=== PATIENT | female | born 1965 | race Asian ===

== ENCOUNTER 2019-06-27 16:24 | Emergency (ER) | payer OTHER ==
[~2019-06-27] VITALS: Ht 170.2 cm; Wt 63.9 kg
--- NOTE | 2019-06-27 19:10 | NUR ---
PT TO ROOM FROM LOBBY
--- NOTE | 2019-06-27 19:38 | NUR ---
FARA HERMAN FOR EXAM. PT C/O COUGH X 8 DAYS, CURRENTLY TAKING ANTIBIOTICS (STARTED THURSDAY). DRY CONGESTED COUGH NOTED. INTERMITTENT FEVER - NO ANTIPYRETIC TAKEN TODAY. SPOUSE IN ROOM Addendum: 06/27/19 at 2030 by MEMO CORRECTION: FARA PEACE. NOT BATSHEVA
[2019-06-27] MEDS ORDERED: SULF500T36 PO (19:45)
[2019-06-27] MEDS ORDERED: IBUP-1222 PO (19:45)
[2019-06-27] MEDS ORDERED: HYDR200T72 PO (19:45)
[2019-06-27] MEDS ORDERED: AMOX-291 PO (19:45)
[2019-06-27] MEDS ORDERED: AZIT250T PO (19:45)
[2019-06-27] MEDS ORDERED: SODIUM CHLORIDE FLUSH 10ML SYR IVF ONE (20:00)
--- NOTE | 2019-06-27 20:15 | NUR ---
PIV INITIATED: 20G RAC, BLOOD CX SET DRAWN FROM SITE. BLD CX BAND PLACED PER OCCUPATIONAL HEALTH MANAGER.
[2019-06-27 20:23] LABS: BASOPHILS # (AUTO) 0.03 x10^3/uL (0-0.1); BASOPHILS % (AUTO) 1 % (0-1); EOSINOPHILS # (AUTO) 0.06 x10^3/uL (0-0.4); EOSINOPHILS % (AUTO) 1 % (1-7); LYMPHOCYTES # (AUTO) 2.01 x10^3/uL (1-3.4); LYMPHOCYTES % (AUTO) 39 % (22-44); MD NO; MEAN CORPUSCULAR HEMOGLOBIN 30.1 pg (27.0-34.8); MEAN CORPUSCULAR HGB CONC 32.6 g/dL (32.4-35.8); MEAN CORPUSCULAR VOLUME 92.3 fL (80-100); MONOCYTES # (AUTO) 0.39 x10^3/uL (0.2-0.8); MONOCYTES % (AUTO) 7 % (2-9); NEUTROPHILS # (AUTO) 2.71 x10^3/uL (1.8-6.8); NEUTROPHILS % (AUTO) 52 % (42-75); PLATELET COUNT 192 x10^3/uL (130-400); RED BLOOD COUNT 4.06 x10^6/uL (3.82-5.3); RED CELL DISTRIBUTION WIDTH 12.4 % (9.6-15.2)
[2019-06-27 20:35] LABS: ALANINE AMINOTRANSFERASE 51 U/L (12-78); ALBUMIN 3.7 g/dL (3.4-5.0); ANION GAP 5 mmol/L (5-15); CALCIUM 9.3 mg/dL (8.5-10.1); CHLORIDE 111 mmol/L (98-107); CREATININE 0.52 mg/dL (0.55-1.02)
[2019-06-27 20:37] LABS: ALKALINE PHOSPHATASE 102 U/L (45-117); BILIRUBIN,TOTAL 0.4 mg/dL (0.2-1.0); TOTAL PROTEIN 7.5 g/dL (6.4-8.2)
[2019-06-27 21:27] VITALS: BP 122/75
[2019-06-27] MEDS ORDERED: DOXYCYCLINE 100MG TABLET ONE (21:44)
--- NOTE | 2019-06-27 21:47 | NUR ---
DOXYCYCLINE GIVEN PER EMAR
[2019-06-27] MEDS ORDERED: DOXYCYCLINE 100MG TABLET PO ONE (22:00)
== END 2019-06-27 23:16 ==
LOC: ED 21:55
DX: J15.9 Unspecified bacterial pneumonia (principal); M79.10 Myalgia, unspecified site
CPT/HCPCS: 36415; 71046; 80053; 83605; 84145; 85025; 87040; 93005; 99284

== ENCOUNTER 2019-07-06 13:43 | Inpatient (IN) | payer OTHER ==
[~2019-07-06] VITALS: Ht 170.2 cm; Wt 67.5 kg
[~2019-07-06 13:43] MED LIST: AMOX-291 PO; AZIT250T PO; HYDR200T72 PO; IBUP-1222 PO; SULF500T36 PO
--- NOTE | 2019-07-06 14:32 | NUR ---
PT HAS BEEN GETTING TREATED FOR PNEUMONIA FOR THE PAST MONTH. SHE FIRST WENT TO THE HOSPITAL IN [place] ON [place]. CAME BACK TO [place] ON THE AND CAME TO [facility] FOR FURTHER TREATMENT. WAS GIVEN ABX AND TREATED FOR PNEUMONIA. SAYS SHE ISNT GETTING BETTER. PT ACCOMPANIED BY . WARM BLANKET PROVIDED.
[2019-07-06] MEDS ORDERED: BENZ-17 PO (14:36)
[2019-07-06] MEDS ORDERED: DOXY100C2 PO (14:36)
[2019-07-06] MEDS: SODIUM CHLORIDE 0.9% 1,000 ML IV ONE ×2 (14:37→14:55)
[2019-07-06] MEDS ORDERED: SODIUM CHLORIDE FLUSH 10ML SYR IVF ONE (15:00)
[2019-07-06] MEDS ORDERED: SODIUM CHLORIDE 0.9% 1,000ML IVBOLUS ONE (15:00)
[2019-07-06 15:07] LABS: BASOPHILS % (AUTO) 0 % (0-1); EOSINOPHILS # (AUTO) 0.02 x10^3/uL (0-0.4); EOSINOPHILS % (AUTO) 1 % (1-7); LYMPHOCYTES # (AUTO) 0.24 x10^3/uL (1-3.4); LYMPHOCYTES % (AUTO) 7 % (22-44); MD NO; MEAN CORPUSCULAR HGB CONC 33.7 g/dL (32.4-35.8); MEAN CORPUSCULAR VOLUME 91.9 fL (80-100); MONOCYTES # (AUTO) 0.18 x10^3/uL (0.2-0.8); MONOCYTES % (AUTO) 5 % (2-9); NEUTROPHILS # (AUTO) 3.24 x10^3/uL (1.8-6.8); NEUTROPHILS % (AUTO) 88 % (42-75); PLATELET COUNT 113 x10^3/uL (130-400); RED BLOOD COUNT 4.08 x10^6/uL (3.82-5.3); RED CELL DISTRIBUTION WIDTH 12.2 % (9.6-15.2)
[2019-07-06 15:16] LABS: ALANINE AMINOTRANSFERASE 46 U/L (12-78); ALBUMIN 3.9 g/dL (3.4-5.0); ANION GAP 6 mmol/L (5-15); CALCIUM 9.1 mg/dL (8.5-10.1); CHLORIDE 104 mmol/L (98-107); CREATININE 0.73 mg/dL (0.55-1.02)
[2019-07-06 15:20] LABS: ALKALINE PHOSPHATASE 101 U/L (45-117); BILIRUBIN,TOTAL 0.4 mg/dL (0.2-1.0); TOTAL PROTEIN 7.8 g/dL (6.4-8.2); TROPONIN I < 0.015 ng/mL (0.000-0.045)
[2019-07-06 15:30] LABS: D-DIMER 1.17 ug/mlFEU (0.00-0.52); INTERNATIONAL NORMALIZED RATIO 0.95 (0.93-1.1); PROTHROMBIN TIME 10.1 Seconds (9.6-11.5)
--- NOTE | 2019-07-06 15:36 | NUR ---
PT AMBULATED TO BATHROOM
--- NOTE | 2019-07-06 16:01 | NUR ---
WET WASH CLOTH GIVEN TO PT
[2019-07-06 16:36] LABS: MICROSCOPIC NOT IND
[2019-07-06 16:44] LABS: CULTURE INDICATED? NO
[2019-07-06] MEDS ORDERED: OMNIPAQUE 350 MG/ML, 100ML BOTTLE ONE (16:52)
--- NOTE | 2019-07-06 17:03 | NUR ---
PT AMBULATED TO BATHROOM.
--- NOTE | 2019-07-06 17:26 | NUR ---
PT RESTING IN HOSPITAL BED. NO NEEDS AT THIS TIME
--- NOTE | 2019-07-06 17:51 | NUR ---
PT AMBULATED TO BATHROOM
[2019-07-06] MEDS ORDERED: APAP/CODEINE 300/30MG TABLET ONE (18:14)
--- NOTE | 2019-07-06 18:16 | NUR ---
TASK RN: US AT BEDSIDE WITH ASSESSMENT NOTED TO BE COUGHIN INCESSANTLY (DRY/UNPRODUCTIVE COUGH-ER PROVIDER MADE AWARE TO ORDER APAP WITH CODEINE
[2019-07-06] MEDS ORDERED: APAP/CODEINE 24/2.4MG/ML ELIXIR PO ONE (18:30)
[2019-07-06] MEDS ORDERED: APAP/CODEINE 300/30MG TABLET PO ONE (18:30)
--- NOTE | 2019-07-06 19:20 | NUR ---
PT RESTING IN HOSPITAL BED. AWAITING ROOM FOR ADM. NO NEEDS AT THIS TIME
--- NOTE | 2019-07-06 19:43 | NUR ---
SPOKE WITH DR WATKINS ABOUT PT. HE SAID "WE ARE GOING TO ADMIT HER"
--- NOTE | 2019-07-06 20:14 | NUR ---
ALESHA MARQUEZ IS BEDSIDE
[2019-07-06] MEDS ORDERED: CEFTRIAXONE PMX 1GM/50ML 50 ML IV SCH (20:30)
[2019-07-06] MEDS ORDERED: BISACODYL 10 MG SUPP PR PRN (20:30)
[2019-07-06] MEDS ORDERED: SODIUM CHLORIDE FLUSH 10ML SYR IVF PRN (20:30)
[2019-07-06] MEDS ORDERED: POLYETHYLENE GLYCOL 17 GM PACKET PO PRN (20:30)
[2019-07-06 20:50] LABS: RAPID INFLUENZA A Negative (Negative); RAPID INFLUENZA B POSITIVE (Negative)
[2019-07-06] MEDS ORDERED: DOXYCYCLINE 100MG CAP PO SCH (21:00)
[2019-07-06] MEDS ORDERED: CEFTRIAXONE PMX 1GM/50ML 50 ML ONE (21:15)
[2019-07-06] MEDS ORDERED: HEPARIN 5,000 UNITS/ML, 1ML ONE (21:15)
[2019-07-06] MEDS: HEPARIN 5,000 UNITS/ML, 1ML SQ SCH (21:18)
--- NOTE | 2019-07-06 21:23 | NUR ---
PT RESTING IN HOSPITAL BED. ABX RUNNING. AWAITING ROOM FOR ADMIT.
[2019-07-06] MEDS ORDERED: DOXYCYCLINE 100MG TABLET ONE (21:46)
[2019-07-06] MEDS: SULFASALAZINE 500 MG TABLET PO SCH (21:48)
--- NOTE | 2019-07-06 22:06 | NUR ---
Obtained sandwich from coffee cart for patient. Regular diet.
--- NOTE | 2019-07-06 22:09 | NUR ---
REPORT GIVEN TO TAYE WARREN.
--- NOTE | 2019-07-06 22:22 | NUR ---
Report received from TAYE Vasquez.
--- NOTE | 2019-07-06 22:46 | NUR ---
Report given to Racheel. Patient to be transferred to room 457.
[2019-07-06 22:57] VITALS: BP 108/58
[2019-07-06] MEDS: ACETAMINOPHEN 325 MG TABLET PO PRN (23:09)
[2019-07-06] MEDS: SODIUM CHLORIDE 0.9% 1,000 ML IV SCH (23:09)
[2019-07-06] MEDS: GUAIFENESIN/COD200MG-20MG/10ML LIQUID PO PRN (23:50)
[2019-07-07] MEDS: OSELTAMIVIR 75 MG CAPSULE PO SCH ×3 (00:12→21:13)
[2019-07-07 02:34] VITALS: BP 97/54
[2019-07-07] MEDS: ACETAMINOPHEN 325 MG TABLET PO PRN ×3 (02:57→17:02)
[2019-07-07] MEDS: HEPARIN 5,000 UNITS/ML, 1ML SQ SCH ×3 (05:14→21:16)
[2019-07-07 05:17] LABS: CHLORIDE 109 mmol/L (98-107)
[2019-07-07 05:23] LABS: ALANINE AMINOTRANSFERASE 43 U/L (12-78); ALBUMIN 2.9 g/dL (3.4-5.0); ALKALINE PHOSPHATASE 82 U/L (45-117); ANION GAP 10 mmol/L (5-15); BILIRUBIN,TOTAL 0.4 mg/dL (0.2-1.0); CALCIUM 7.8 mg/dL (8.5-10.1); CREATININE 0.59 mg/dL (0.55-1.02)
[2019-07-07 05:31] LABS: MEAN CORPUSCULAR HEMOGLOBIN 30.5 pg (27.0-34.8); MEAN CORPUSCULAR HGB CONC 33.5 g/dL (32.4-35.8); MEAN CORPUSCULAR VOLUME 91.1 fL (80-100); RED BLOOD COUNT 3.91 x10^6/uL (3.82-5.3); RED CELL DISTRIBUTION WIDTH 12.5 % (9.6-15.2)
[2019-07-07] MEDS: GUAIFENESIN/COD200MG-20MG/10ML LIQUID PO PRN ×3 (05:48→19:18)
[2019-07-07 06:18] LABS: MEAN PLATELET VOLUME 7.2 fL (7.4-10.4); PLATELET COUNT 99 x10^3/uL (130-400)
[2019-07-07 06:20] LABS: MD YES
[2019-07-07 06:23] LABS: BAND#(MANUAL) 0.32 x10^3/uL; BANDS%(MANUAL) 12 % (0-7); LYMPH#(MANUAL) 0.59 x10^3/uL (1-3.4); LYMPHS% (MANUAL) 22 % (22-44); MONOS#(MANUAL) 0.08 x10^3/uL (0.3-2.7); MONOS% (MANUAL) 3 % (2-9); SEGS% (MANUAL) 63 % (42-75)
[2019-07-07 06:24] LABS: <PLATELET ESTIMATE> DECREASED; <PLT MORPHOLOGY> NORMAL PLT MORPH; <RBC MORPHOLOGY> NORMAL
[2019-07-07 06:33] VITALS: BP 81/51
[2019-07-07] MEDS: ONDANSETRON ODT 4 MG PO PRN (08:30)
[2019-07-07] MEDS: SENNA/DOCUSATE TABLET PO SCH (08:31)
[2019-07-07] MEDS: SULFASALAZINE 500 MG TABLET PO SCH ×2 (08:31→21:14)
[2019-07-07] MEDS ORDERED: HYDR200T72 PO (08:34)
[2019-07-07] MEDS: SODIUM CHLORIDE 0.9% 1,000 ML IV SCH ×2 (09:14→17:03)
[2019-07-07 12:28] VITALS: BP 100/61
[2019-07-07] MEDS ORDERED: KETOROLAC 30 MG/1 ML IVPush PRN (12:30)
[2019-07-07] MEDS: AMPICILLIN/SULBACTAM 3 GM in SODIUM CHLORIDE 0.9% 100 ML IV SCH ×2 (12:45→21:13)
[2019-07-07] MEDS: CETIRIZINE 10 MG TABLET PO SCH (12:46)
[2019-07-07] MEDS: BENZONATATE 100 MG CAPSULE PO SCH ×3 (12:46→21:13)
[2019-07-07] MEDS ORDERED: OMNIPAQUE 350 MG/ML, 100ML BOTTLE ONE (14:08)
[2019-07-07 20:03] VITALS: BP 100/61
[2019-07-08 00:14] VITALS: BP 130/58
[2019-07-08] MEDS: GUAIFENESIN/COD200MG-20MG/10ML LIQUID PO PRN ×3 (02:32→16:42)
[2019-07-08] MEDS: ACETAMINOPHEN 325 MG TABLET PO PRN ×3 (02:32→21:17)
[2019-07-08] MEDS: SODIUM CHLORIDE 0.9% 1,000 ML IV SCH ×3 (02:34→23:54)
[2019-07-08] MEDS: HEPARIN 5,000 UNITS/ML, 1ML SQ SCH ×3 (04:46→21:05)
[2019-07-08] MEDS: AMPICILLIN/SULBACTAM 3 GM in SODIUM CHLORIDE 0.9% 100 ML IV SCH ×3 (04:46→21:05)
[2019-07-08 05:43] LABS: ANION GAP 8 mmol/L (5-15); CHLORIDE 109 mmol/L (98-107)
[2019-07-08 05:54] LABS: MEAN CORPUSCULAR HEMOGLOBIN 31.8 pg (27.0-34.8); MEAN CORPUSCULAR HGB CONC 34.2 g/dL (32.4-35.8); MEAN CORPUSCULAR VOLUME 92.9 fL (80-100); RED BLOOD COUNT 3.39 x10^6/uL (3.82-5.3); RED CELL DISTRIBUTION WIDTH 12.7 % (9.6-15.2)
[2019-07-08 06:35] LABS: MEAN PLATELET VOLUME 7.6 fL (7.4-10.4)
[2019-07-08 06:36] LABS: PLATELET COUNT 78 x10^3/uL (130-400)
[2019-07-08 06:37] LABS: MD YES
[2019-07-08 06:41] LABS: BAND#(MANUAL) 0.92 x10^3/uL; BANDS%(MANUAL) 28 % (0-7); LYMPH#(MANUAL) 0.53 x10^3/uL (1-3.4); LYMPHS% (MANUAL) 16 % (22-44); REACTIVE LYMPHS # (MANUAL) 0.07 x10^3/uL (0-0); REACTIVE LYMPHS % (MANUAL) 2 % (0-0)
[2019-07-08 06:42] LABS: <PLATELET ESTIMATE> DECREASED; <PLT MORPHOLOGY> NORMAL PLT MORPH; <RBC MORPHOLOGY> NORMAL; MONOS% (MANUAL) 3 % (2-9); SEG#(MANUAL) 1.68 x10^3/uL (1.8-6.8); SEGS% (MANUAL) 51 % (42-75)
[2019-07-08 08:03] VITALS: BP 92/58
[2019-07-08] MEDS: SULFASALAZINE 500 MG TABLET PO SCH ×2 (09:16→21:05)
[2019-07-08] MEDS: BENZONATATE 100 MG CAPSULE PO SCH ×3 (09:16→21:05)
[2019-07-08] MEDS: CETIRIZINE 10 MG TABLET PO SCH (09:16)
[2019-07-08] MEDS: OSELTAMIVIR 75 MG CAPSULE PO SCH ×2 (09:16→21:05)
[2019-07-08] MEDS: SENNA/DOCUSATE TABLET PO SCH (09:16)
[2019-07-08] MEDS: ONDANSETRON ODT 4 MG PO PRN (09:16)
[2019-07-08] MEDS: LACTOBACILLUS CHEW TABLET PO SCH ×3 (12:48→21:05)
[2019-07-08 13:34] LABS: HIT RESULT NEGATIVE (NEGATIVE)
[2019-07-08 16:41] VITALS: BP 113/68
[2019-07-08 20:30] VITALS: BP 125/78
[2019-07-09 01:46] VITALS: BP 100/65
[2019-07-09] MEDS: GUAIFENESIN/COD200MG-20MG/10ML LIQUID PO PRN ×2 (01:57→15:08)
[2019-07-09] MEDS: AMPICILLIN/SULBACTAM 3 GM in SODIUM CHLORIDE 0.9% 100 ML IV SCH ×3 (04:50→21:09)
[2019-07-09] MEDS: HEPARIN 5,000 UNITS/ML, 1ML SQ SCH ×3 (05:05→21:10)
[2019-07-09 05:16] LABS: ANION GAP 4 mmol/L (5-15); CALCIUM 7.6 mg/dL (8.5-10.1); CHLORIDE 111 mmol/L (98-107); CREATININE 0.59 mg/dL (0.55-1.02)
[2019-07-09 05:20] LABS: MEAN CORPUSCULAR HEMOGLOBIN 32.5 pg (27.0-34.8); MEAN CORPUSCULAR HGB CONC 34.4 g/dL (32.4-35.8); MEAN CORPUSCULAR VOLUME 94.3 fL (80-100); MEAN PLATELET VOLUME 7.6 fL (7.4-10.4); PLATELET COUNT 79 x10^3/uL (130-400); RED BLOOD COUNT 3.27 x10^6/uL (3.82-5.3); RED CELL DISTRIBUTION WIDTH 12.6 % (9.6-15.2)
[2019-07-09 05:38] LABS: MD YES
[2019-07-09 05:40] LABS: <PLATELET ESTIMATE> DECREASED; <PLT MORPHOLOGY> NORMAL PLT MORPH; <RBC MORPHOLOGY> NORMAL; BAND#(MANUAL) 0.73 x10^3/uL; BANDS%(MANUAL) 25 % (0-7); EOS#(MANUAL) 0.06 x10^3/uL (0.0-0.4); EOS% (MANUAL) 2 % (1-7); LYMPH#(MANUAL) 0.64 x10^3/uL (1-3.4); LYMPHS% (MANUAL) 22 % (22-44); MONOS#(MANUAL) 0.09 x10^3/uL (0.3-2.7); MONOS% (MANUAL) 3 % (2-9); REACTIVE LYMPHS # (MANUAL) 0.03 x10^3/uL (0-0); REACTIVE LYMPHS % (MANUAL) 1 % (0-0); SEG#(MANUAL) 1.36 x10^3/uL (1.8-6.8); SEGS% (MANUAL) 47 % (42-75)
[2019-07-09 07:05] VITALS: BP 132/66
[2019-07-09] MEDS ORDERED: ALBUTEROL SULFATE 2.5 MG/3 ML ONE (08:59)
[2019-07-09] MEDS: SENNA/DOCUSATE TABLET PO SCH (09:00)
[2019-07-09] MEDS: BENZONATATE 100 MG CAPSULE PO SCH ×3 (09:00→21:10)
[2019-07-09] MEDS: CETIRIZINE 10 MG TABLET PO SCH (09:00)
[2019-07-09] MEDS: SULFASALAZINE 500 MG TABLET PO SCH ×2 (09:00→21:10)
[2019-07-09] MEDS: OSELTAMIVIR 75 MG CAPSULE PO SCH ×2 (09:00→21:09)
[2019-07-09] MEDS: LACTOBACILLUS CHEW TABLET PO SCH ×3 (09:00→21:10)
[2019-07-09] MEDS: SODIUM CHLORIDE 0.9% 1,000 ML IV SCH ×2 (09:01→21:10)
[2019-07-09] MEDS ORDERED: ALBUTEROL SULFATE 2.5 MG/3 ML NPPB PRN (09:30)
[2019-07-09 15:11] VITALS: BP 116/74
[2019-07-09 19:14] VITALS: BP 116/76
[2019-07-09] MEDS: FLUTICASONE NASAL SPRAY 16GM NAS SCH (21:09)
[2019-07-10 00:10] VITALS: BP 116/73
[2019-07-10] MEDS: AMPICILLIN/SULBACTAM 3 GM in SODIUM CHLORIDE 0.9% 100 ML IV SCH ×3 (04:52→21:35)
[2019-07-10] MEDS: GUAIFENESIN/COD200MG-20MG/10ML LIQUID PO PRN (04:55)
[2019-07-10 05:14] LABS: MEAN CORPUSCULAR HEMOGLOBIN 31.2 pg (27.0-34.8); MEAN CORPUSCULAR HGB CONC 33.8 g/dL (32.4-35.8); MEAN CORPUSCULAR VOLUME 92.2 fL (80-100); MEAN PLATELET VOLUME 7.1 fL (7.4-10.4); PLATELET COUNT 90 x10^3/uL (130-400); RED BLOOD COUNT 3.29 x10^6/uL (3.82-5.3); RED CELL DISTRIBUTION WIDTH 13.1 % (9.6-15.2)
[2019-07-10 05:29] LABS: CHLORIDE 107 mmol/L (98-107)
[2019-07-10] MEDS: HEPARIN 5,000 UNITS/ML, 1ML SQ SCH ×3 (05:30→21:30)
[2019-07-10 05:32] LABS: ANION GAP 7 mmol/L (5-15); CREATININE 0.43 mg/dL (0.55-1.02)
[2019-07-10 05:44] LABS: MD YES
[2019-07-10 05:51] LABS: <PLATELET ESTIMATE> DECREASED; <PLT MORPHOLOGY> NORMAL PLT MORPH; <RBC MORPHOLOGY> NORMAL; BAND#(MANUAL) 0.29 x10^3/uL; BANDS%(MANUAL) 12 % (0-7); EOS#(MANUAL) 0.07 x10^3/uL (0.0-0.4); EOS% (MANUAL) 3 % (1-7); LYMPH#(MANUAL) 0.96 x10^3/uL (1-3.4); LYMPHS% (MANUAL) 40 % (22-44); MONOS#(MANUAL) 0.14 x10^3/uL (0.3-2.7); MONOS% (MANUAL) 6 % (2-9); SEG#(MANUAL) 0.94 x10^3/uL (1.8-6.8); SEGS% (MANUAL) 39 % (42-75)
[2019-07-10 06:45] VITALS: BP 114/70
[2019-07-10] MEDS: SODIUM CHLORIDE 0.9% 1,000 ML IV SCH ×2 (08:00→17:22)
[2019-07-10] MEDS: SENNA/DOCUSATE TABLET PO SCH (09:00)
[2019-07-10] MEDS: FLUTICASONE NASAL SPRAY 16GM NAS SCH ×2 (09:00→21:36)
[2019-07-10] MEDS: CETIRIZINE 10 MG TABLET PO SCH (09:09)
[2019-07-10] MEDS: BENZONATATE 100 MG CAPSULE PO SCH ×3 (09:09→21:36)
[2019-07-10] MEDS: LACTOBACILLUS CHEW TABLET PO SCH ×3 (09:09→21:35)
[2019-07-10] MEDS: OSELTAMIVIR 75 MG CAPSULE PO SCH ×2 (09:09→21:36)
[2019-07-10] MEDS: SULFASALAZINE 500 MG TABLET PO SCH ×2 (09:09→21:36)
[2019-07-10 13:54] VITALS: BP 113/72
[2019-07-10] MEDS: ACETAMINOPHEN 325 MG TABLET PO PRN ×2 (14:11→21:53)
[2019-07-10 18:39] VITALS: BP 126/82
[2019-07-11 00:45] VITALS: BP 110/72
[2019-07-11] MEDS: GUAIFENESIN/COD200MG-20MG/10ML LIQUID PO PRN ×2 (03:56→21:58)
[2019-07-11] MEDS: SODIUM CHLORIDE 0.9% 1,000 ML IV SCH ×2 (03:56→14:28)
[2019-07-11] MEDS: ACETAMINOPHEN 325 MG TABLET PO PRN ×2 (03:56→21:59)
[2019-07-11] MEDS: HEPARIN 5,000 UNITS/ML, 1ML SQ SCH ×3 (05:30→21:30)
[2019-07-11] MEDS: AMPICILLIN/SULBACTAM 3 GM in SODIUM CHLORIDE 0.9% 100 ML IV SCH ×3 (05:30→21:58)
[2019-07-11 07:04] VITALS: BP 111/68
[2019-07-11] MEDS: SENNA/DOCUSATE TABLET PO SCH (09:00)
[2019-07-11] MEDS: SULFASALAZINE 500 MG TABLET PO SCH ×2 (09:43→21:59)
[2019-07-11] MEDS: BENZONATATE 100 MG CAPSULE PO SCH ×3 (09:44→21:59)
[2019-07-11] MEDS: LACTOBACILLUS CHEW TABLET PO SCH ×3 (09:44→21:59)
[2019-07-11] MEDS: FLUTICASONE NASAL SPRAY 16GM NAS SCH ×2 (09:44→22:04)
[2019-07-11] MEDS: OSELTAMIVIR 75 MG CAPSULE PO SCH ×2 (09:44→21:59)
[2019-07-11] MEDS: CETIRIZINE 10 MG TABLET PO SCH (09:44)
[2019-07-11 12:27] VITALS: BP 115/74
[2019-07-11 13:01] LABS: MEAN CORPUSCULAR HEMOGLOBIN 31.7 pg (27.0-34.8); MEAN CORPUSCULAR HGB CONC 34.1 g/dL (32.4-35.8); MEAN CORPUSCULAR VOLUME 92.9 fL (80-100); MEAN PLATELET VOLUME 6.8 fL (7.4-10.4); PLATELET COUNT 110 x10^3/uL (130-400); RED CELL DISTRIBUTION WIDTH 12.8 % (9.6-15.2)
[2019-07-11 13:50] LABS: MD YES
[2019-07-11 13:55] LABS: BAND#(MANUAL) 0.18 x10^3/uL; BANDS%(MANUAL) 8 % (0-7); BASOS#(MANUAL) 0.02 x10^3/uL (0-0.1); BASOS% (MANUAL) 1 % (0-1); EOS#(MANUAL) 0.05 x10^3/uL (0.0-0.4); EOS% (MANUAL) 2 % (1-7); LYMPHS% (MANUAL) 48 % (22-44); MONOS% (MANUAL) 13 % (2-9); REACTIVE LYMPHS # (MANUAL) 0.07 x10^3/uL (0-0); REACTIVE LYMPHS % (MANUAL) 3 % (0-0); SEG#(MANUAL) 0.58 x10^3/uL (1.8-6.8); SEGS% (MANUAL) 25 % (42-75)
[2019-07-11 13:56] LABS: <PLATELET ESTIMATE> DECREASED; <PLT MORPHOLOGY> NORMAL PLT MORPH; <RBC MORPHOLOGY> NORMAL
[2019-07-11 18:34] VITALS: BP 147/75
[2019-07-12] MEDS: SODIUM CHLORIDE 0.9% 1,000 ML IV SCH (00:40)
[2019-07-12 00:44] VITALS: BP 119/76
[2019-07-12] MEDS: HEPARIN 5,000 UNITS/ML, 1ML SQ SCH (05:30)
[2019-07-12] MEDS: AMPICILLIN/SULBACTAM 3 GM in SODIUM CHLORIDE 0.9% 100 ML IV SCH (05:47)
[2019-07-12 05:57] LABS: MEAN CORPUSCULAR HEMOGLOBIN 32.9 pg (27.0-34.8); MEAN CORPUSCULAR HGB CONC 34.5 g/dL (32.4-35.8); MEAN CORPUSCULAR VOLUME 95.5 fL (80-100); MEAN PLATELET VOLUME 6.9 fL (7.4-10.4); PLATELET COUNT 134 x10^3/uL (130-400); RED BLOOD COUNT 3.24 x10^6/uL (3.82-5.3)
[2019-07-12 06:15] LABS: MD YES
[2019-07-12 06:18] LABS: BAND#(MANUAL) 0.03 x10^3/uL; BANDS%(MANUAL) 1 % (0-7); LYMPH#(MANUAL) 1.94 x10^3/uL (1-3.4); LYMPHS% (MANUAL) 72 % (22-44); MONOS#(MANUAL) 0.32 x10^3/uL (0.3-2.7); MONOS% (MANUAL) 12 % (2-9); REACTIVE LYMPHS # (MANUAL) 0.03 x10^3/uL (0-0); REACTIVE LYMPHS % (MANUAL) 1 % (0-0); SEG#(MANUAL) 0.38 x10^3/uL (1.8-6.8); SEGS% (MANUAL) 14 % (42-75)
[2019-07-12 06:19] LABS: <PLATELET ESTIMATE> ADEQUATE; <PLT MORPHOLOGY> NORMAL PLT MORPH; POLYCHROMASIA 1+
[2019-07-12 06:44] VITALS: BP 128/76
[2019-07-12] MEDS: SENNA/DOCUSATE TABLET PO SCH (09:00)
[2019-07-12] MEDS: BENZONATATE 100 MG CAPSULE PO SCH (09:41)
[2019-07-12] MEDS: CETIRIZINE 10 MG TABLET PO SCH (09:41)
[2019-07-12] MEDS: LACTOBACILLUS CHEW TABLET PO SCH (09:41)
[2019-07-12] MEDS: SULFASALAZINE 500 MG TABLET PO SCH (09:44)
[2019-07-12] MEDS: FLUTICASONE NASAL SPRAY 16GM NAS SCH (09:49)
[2019-07-12] MEDS ORDERED: FLUT16SP24 NAS (11:52)
[2019-07-12] MEDS ORDERED: AMOX1TAB64 PO (11:52)
[2019-07-12] MEDS ORDERED: BENZ-17 PO (11:52)
[2019-07-12] MEDS ORDERED: ACID1TAB7 PO (11:52)
[2019-07-12] MEDS ORDERED: CETI10TA18 PO (11:52)
[2019-07-12 13:09] VITALS: BP 122/78
== END 2019-07-12 15:23 | disposition home or self-care (01) | DRG 872 ==
LOC: ED 15:55 → EDIP 20:04 → 4NE 22:40 → 3N 07-08 14:09
PROVIDERS: ADMIT Family Medicine; ATTEND Family Medicine
DX: A41.9 Sepsis, unspecified organism (principal); D69.6 Thrombocytopenia, unspecified; D70.9 Neutropenia, unspecified; J01.90 Acute sinusitis, unspecified; Z82.49 Family history of ischemic heart disease and other diseases of the circulatory system; M32.9 Systemic lupus erythematosus, unspecified; M26.69 Other specified disorders of temporomandibular joint; Z88.8 Allergy status to other drugs, medicaments and biological substances
CPT/HCPCS: 36415; 87400; 96374; 99285; J7613; 70491; 71046; 71275; 76380; 76700; 80048; 80053; 81003; 83605; 83880; 84484; 85025; 85379; 85610; 85730; 86022; 87040; 87070; 87205; 93005; 94640; G0378; J0295; J0696; J1644; Q0162; Q9967; J7030